=== PATIENT | female | born 1955 | race Caucasian/White ===

== ENCOUNTER 2022-01-03 08:09 | Outpatient (CLI) | payer OTHER, SELFPAY ==
[2022-01-03 13:42] LABS: Albumin* 4.7 g/dL (3.3-5.0)
[2022-01-03 13:43] LABS: Chloride* 101 mmol/L (96-114); Potassium* 4.1 mmol/L (3.6-5.1); Sodium* 138 mmol/L (135-149)
[2022-01-03 13:45] LABS: Aspartate Amino Transferase* 31 U/L (12-35); Bilirubin Total* 1.6 mg/dL (0.1-1.5); Blood Urea Nitrogen* 31 mg/dL (7-30); Carbon Dioxide* 27 mmol/L (20-32); Cholesterol* 198 mg/dL (90-199); Creatinine* 1.4 mg/dL (0.5-1.5); Estimated Glomerular Filt Rate 41 ml/min; Glucose* 95 mg/dL (60-115); Total Protein* 7.4 g/dL (6.0-8.3)
[2022-01-03 13:46] LABS: Alanine Aminotransferase* 21 U/L (4-35); Alkaline Phosphatase* 93 U/L (40-150); Calcium* 9.9 mg/dL (8.4-10.6); Triglycerides* 53 mg/dL (40-149)
[2022-01-03 14:03] LABS: HDL Cholesterol* 114 mg/dL (>=50); LDL Cholesterol Calculated 73 mg/dL (<100)
[2022-01-03 15:33] LABS: Free T4 Free Thyroxine* 1.48 ng/dL (0.70-1.85)
== END 2022-01-03 08:10 | disposition home or self-care (01) ==
LOC: LKVREF 08:09
PROVIDERS: PCP Family Medicine; Visit Provider Family Medicine
DX: E78.5 Hyperlipidemia, unspecified (principal); E03.9 Hypothyroidism, unspecified
CPT/HCPCS: 80053; 80061; 84439; 84443

== ENCOUNTER 2022-02-01 12:37 | Outpatient (CLI) | payer OTHER, SELFPAY ==
--- NOTE | 2022-02-01 13:00 | CRLHL7_ITS ---
For Patients: As a result of the Century Cures Act, medical imaging exams and procedure reports are released immediately into your electronic medical record. You may view this report before your referring provider. If you have questions, please contact your health care provider. DXA BONE MINERAL DENSITY STUDY Reason for exam: Osteoporosis. Current height (in): 63.5. Weight (lb): 184. Menopause age: 44. Ethnicity: White. 1. Have you had a previous hip or vertebral fracture? No. 2. Have you had any fractures during your adult life which did not result from significant trauma (e.g., auto accident)? No. 3. Did either of your parents have a hip fracture? No. 4. Do you smoke? No. 5. Have you ever taken Glucocorticoids? No. 6. Do you have rheumatoid arthritis? No. 7. Do you have secondary osteoporosis? No. 8. Do you drink 3 or more alcoholic drinks per day? No. 9. Are you being treated for osteoporosis? No. 10. Have you ever taken any of the following medications: Actonel, Evista, Fosamax, Miacalcin, Reclast, Boniva, Forteo, HRT (i.e., estrogen/hormone therapy), Protelos, Prolia, Vitamin D, Calcium, other ??? please specify. ANSWER: Yes, vitamin D. 11. Do you have any of the following medical conditions: Anorexia or bulimia, asthma or emphysema, end stage renal disease, hyperparathyroidism, any seizure disorders, cancer, inflammatory bowel diseases, hysterectomy, other ??? please specify. ANSWER: Yes, hysterectomy. 12. What was your maximum height (inches)? 68. 13. Do you perform weight bearing exercise regularly? Yes. 14. Do you regularly consume dairy products? Yes. 15. Do you drink caffeinated beverages? Yes. If female: 16. At what age did your period start? 11. 17. Are you premenopausal? No. 18. How many full-term pregnancies have you had? 0. 19. Have you ever missed your period for more than 6 months in a row (not including or menopause)? Not provided. TECHNIQUE: Bone mineral density study was performed using the [facility]. FINDINGS: The results of the study expressed as bone mineral density (BMD) are as follows: Lumbar spine L1, L4: BMD: 1.089 g/cm2. T-score: 0.5. Z-score: 2.5 Neck Left: BMD: 0.728 g/cm2. T-score: -1.1. Z-score: 0.6 Right: BMD: 0.840 g/cm2. T-score: -0.1. Z-score: 1.6 Total Left: BMD: 0.756 g/cm2. T-score: -1.5. Z-score: -0.1 Right: BMD: 0.785 g/cm2. T-score: -1.3. Z-score: 0.2 IMPRESSION: Osteopenia. *Comparison exams done prior to 08/2019 were performed on different unit, [facility]. COMPARISON: Compared with scan of 02/16/2019, the bone mineral density has decreased by 5.5 percent at the spine and increased by 2.1 percent at the hip. FRAX 10-year Fracture Risk Major Osteoporotic Fracture: 8.5% Hip Fracture: 0.8% Reported Risk Factors: [place] () Neck BMD=0.728, BMI= 32.1 Danny Valdes M.D. Diagnostic Radiologist [email or web address] JAMES/[email or web address] adams/Dictated by: Danny Valdes MD @ 02/02/2022 12:21:00 PM (Electronically Signed)
== END 2022-02-01 12:38 | disposition home or self-care (01) ==
LOC: RAD 12:38
PROVIDERS: PCP Family Medicine; Visit Provider Family Medicine
DX: M81.0 Age-related osteoporosis without current pathological fracture (principal); M85.89 Other specified disorders of bone density and structure, multiple sites; E28.319 Asymptomatic premature menopause
CPT/HCPCS: 77080

== ENCOUNTER 2022-03-08 09:29 | Outpatient (CLI) | payer OTHER, SELFPAY ==
[2022-03-08 12:20] LABS: Chloride* 106 mmol/L (96-114); Sodium* 141 mmol/L (135-149)
[2022-03-08 12:23] LABS: Blood Urea Nitrogen* 17 mg/dL (7-30); Carbon Dioxide* 26 mmol/L (20-32); Creatinine* 0.6 mg/dL (0.5-1.5); Estimated Glomerular Filt Rate 97 ml/min
[2022-03-08 12:24] LABS: Calcium* 9.3 mg/dL (8.4-10.6); Glucose* 98 mg/dL (60-115)
== END 2022-03-08 09:30 | disposition home or self-care (01) ==
PROVIDERS: PCP Family Medicine; Visit Provider Family Medicine
DX: E03.9 Hypothyroidism, unspecified (principal); N28.9 Disorder of kidney and ureter, unspecified; E78.5 Hyperlipidemia, unspecified; I10 Essential (primary) hypertension; F41.9 Anxiety disorder, unspecified
CPT/HCPCS: 80048; 84443

== ENCOUNTER 2022-03-19 09:42 | Day surgery (SDC) | payer OTHER, SELFPAY ==
[2022-03-19] VITALS (13 sets, daily range): BP systolic 117–165; BP diastolic 66–88; PULSE 62–78; RESP 14–24; TEMP 36.1–36.8; O2SAT 92–99; BMI 32.3
[2022-03-19] MEDS: LACTATED RINGERS 1000 ML 1,000 ML 100 ML IV (10:55)
[2022-03-19] MEDS: SODIUM CHLORIDE 0.9 % (FLUSH) 10 ML SYRINGE IVF (10:55)
--- NOTE | 2022-03-19 11:09 | SUR.PREOP ---
verified patients home covid test, results negative.
--- NOTE | 2022-03-19 12:00 | CRLHL7_ITS ---
For Patients: As a result of the Century Cures Act, medical imaging exams and procedure reports are released immediately into your electronic medical record. You may view this report before your referring provider. If you have questions, please contact your health care provider. Indication: Intraoperative fluoroscopy provided. Technique: Intraoperative fluoroscopy was provided by the Department. No radiologist was present for 1 consulted during the procedure. Two images were submitted. Total exposure time is 21 seconds. Total dose is [id number] Comparison: None Findings: The images show an operative procedure on the left foot in progress Impression: Intraoperative fluoroscopy provided Dictated by Tommy Ramirez MD @ 03/19/2022 5:58:17 PM (Electronically Signed)
[2022-03-19] MEDS: BUPIVACAINE 0.5% 30 ML INJECTION (14:00)
--- NOTE | 2022-03-19 14:27 | W.ANESCHARGE ---
Anesthesia Charges Start Date/Time Anesthesia Start Date: 03/19/22 Anesthesia Start Time: 13:52 Stop Date/Time Anesthesia Stop Date: 03/19/22 Anesthesia Stop Time: 17:09 Summary Emergency: No
--- NOTE | 2022-03-19 16:18 | SUR.PREOP ---
was called & updated regarding patient recovering on the Med/Surg floor. is picking up scripts prior to coming to pick patient up this evening. Med/Surg charge nurse, Leidy, was given all DC instructions for patient.
--- NOTE | 2022-03-19 17:03 | W.ANESCHARGE ---
Anesthesia Charges Start Date/Time Anesthesia Start Date: 03/19/22 Anesthesia Start Time: 13:52 Stop Date/Time Anesthesia Stop Date: 03/19/22 Anesthesia Stop Time: 17:09 Summary Emergency: No
--- NOTE | 2022-03-19 17:13 | P.GSOP_ITS ---
Operative Note Date of procedure: 03/19/22 Pre-op diagnosis: 1. Great toe deformity overlapping 2nd left 2. Hammertoe deformity 2nd digit left 3. Hammertoe deformity 3rd digit left 4. Hammertoe deformity 4th digit left 5. Hammertoe deformity 5th digit left 6. Bone spur left foot Post-op diagnosis: 1. Great toe deformity overlapping 2nd left 2. Hammertoe deformity 2nd digit left 3. Hammertoe deformity 3rd digit left 4. Hammertoe deformity 4th digit left 5. Hammertoe deformity 5th digit left 6. Bone spur left foot Type of Procedure: 1. First metatarsophalangeal joint fusion left 2. 2nd Hammertoe repair by PIPJ fusion with proximal phalangeal base resection left 3. Third hammertoe repair by PIPJ fusion with proximal phalangeal base resection left 4. Fourth hammertoe repair by PIPJ fusion with extensor and MPJ capsule release left 5. Fifth digit repair by extensor and MPJ capsule release left 6. Exostectomy left foot Indications: Patient is in clinic for ongoing left foot pain. After long discussion our last visit primary pain is the forefoot. She has extensive arthritic changes throughout the midfoot and we are going to take a small area of spurring off the 1st metatarsal cuneiform joint. We discussed her forefoot reconstruction and possible surgical procedures that will be necessary. I reviewed the procedure, recovery, expectations and potential complications. These include but are not limited to: Poor wound healing, wound infection, nerve injury, hardware failure or irritation, under correction, over correction, nonunion, malunion, delayed union, flail toe, floating toe, potential need for future surgery, deep venous thrombosis, pulmonary embolism and possible . All questions answered written consent was obtained. Procedure Description: Preoperative diagnosis: 1. Great toe deformity overlapping 2nd left 2. Hammertoe deformity 2nd digit left 3. Hammertoe deformity 3rd digit left 4. Hammertoe deformity 4th digit left 5. Hammertoe deformity 5th digit left 6. Bone spur left foot Postoperative diagnosis: 1. Great toe deformity overlapping 2nd left 2. Hammertoe deformity 2nd digit left 3. Hammertoe deformity 3rd digit left 4. Hammertoe deformity 4th digit left 5. Hammertoe deformity 5th digit left 6. Bone spur left foot Procedure: 1. First metatarsophalangeal joint fusion left 2. 2nd Hammertoe repair by PIPJ fusion with proximal phalangeal base resection left 3. Third hammertoe repair by PIPJ fusion with proximal phalangeal base resection left 4. Fourth hammertoe repair by PIPJ fusion with extensor and MPJ capsule release left 5. Fifth digit repair by extensor and MPJ capsule release left 6. Exostectomy left foot After discussing the risks and benefits of the procedure, the patient signed informed consent.? The operative site was marked and the patient was brought to the operating room and placed on the operating table in supine position.? Care was taken to pad the patient's pressure points.?? The patient was then given sedation by anesthesia.??30 mL of 0.5% Marcaine plain were injected into the left foot. The operative site was then prepped and draped in the usual sterile fashion.? A time-out was then performed. Left foot was not exsanguinated and the ankle tourniquet was inflated to 250 mm Hg. Linear incision made over the 1st metatarsophalangeal joint. Incision was carried down through skin subcutaneous tissues. Linear capsule incision was made the capsular tissues and periosteum reflected away from the 1st metatarsal head and proximal phalangeal base. The extensor hallucis longus tendon and brevis tendon were both strong and contracted. It would allow any plantar flexion of the great toe. A Z-lengthening was then performed of the EHL tendon. The extensor brevis tendon was transected at the level of the joint. These will be later repaired. A pin was placed in the 1st metatarsal head and an 18 mm Reamer was used to remove cartilage and subchondral bone. Guide pin was removed and placed in the proximal phalangeal base the corresponding 18 mm Re amer was used to remove cartilage and subchondral bone. Wound was thoroughly irrigated normal sterile saline. No fenestration was necessary due to soft bone. Simulated weight-bearing with a metal lid allowed placement of the great toe the perfect position. She had a negative intermetatarsal angle and so the toe was placed slightly angled medial. Once in place temporary K-wire was directed across the fusion site. C-arm confirmed excellent placement guide pin was then placed from distal medial to proximal lateral and a 3.0 partially- threaded headless screw was inserted. The dorsal 1st MPJ fusion plate was then applied and 3.0 mm locking screws x3 were placed distally and x2 proximally. A 3.0 mm nonlocking screw was also placed proximal. Wounds thoroughly irrigated normal sterile saline. Extensor tendon was then repaired with 4-0 FiberWire suturing the proximal slips of the longus and brevis to the distal slip of the longus. Joint capsule was then closed with 3-0 Vicryl. Subcutaneous tissues reapproximated with 4-0 Monocryl. Skin repaired with 4-0 Prolene. Slightly more proximal a linear incision made over the 1st metatarsocuneiform joint. There was a large bony spur in this area dorsally. Incision was carried down through skin subcutaneous tissues. Periosteal elevator was used to lift the periosteum off the spurred area. One loose piece of bone was removed. The remainder of the bony spur was removed with a rongeur. Direct palpation confirmed adequate resection. Thoroughly irrigated normal sterile saline. Subcutaneous tissues reapproximated with 4-0 Monocryl and skin closed with 4-0 Prolene. Linear incisions made over the 2nd toe PIPJ. Incision was taken down through skin subcutaneous tissues. Transverse incision was made through extensor tendon and joint capsule and the medial and lateral collateral ligaments were released. An oscillating saw was used to resect the head of the proximal phalanx and base of the middle phalanx. Was medially evident that the proximal phalanx would not reduce. It is a linear incisions made the 2nd intermetatarsal space and the extensor brevis and longus tendons transected as well as the joint capsule dorsally and medially. The toe still did not reduce. Direct plantar palpation and C-arm confirmed prominent and abnormally shaped proximal phalangeal base. Direct palpation of this area medial to the push the proximal phalanx into an extended position. Unfortunately no other option would keep the toe in a rectus position other than resection of the proximal phalangeal base. Base was exposed and a sagittal saw was used to resect base in total it was removed with a rongeur. A 0.054 smooth K-wire was introduced into the base of the middle phalanx driven out the tip of the toe. The PIPJ fusion was held reduced and the K-wire driven into the proximal phalanx. Small amount of the pin was then driven out through the proximal aspect of the phalanx the extensor tendon and capsule were then brought over the pin so that they would lie within metatarsophalangeal joint. K-wires and aligned on the 2nd metatarsal head and with C-arm guidance toes position optimally the K-wire advanced into the meta tarsal. The K-wire was bent cut and capped with a Jergens ball. The wound was thoroughly irrigated with normal sterile saline. Extensor tendon at the PIPJ was repaired with 4-0 Vicryl. Subcutaneous tissues reapproximated 4-0 Monocryl. And the incision closed with 4-0 Prolene. ? Linear incisions made over the 3rd toe PIPJ. Incision was taken down through skin subcutaneous tissues. Transverse incision was made through extensor tendon and joint capsule and the medial and lateral collateral ligaments were released. An oscillating saw was used to resect the head of the proximal phalanx and base of the middle phalanx. It Was medially evident that the proximal phalanx would not reduce. Through the linear incision made in the 2nd intermetatarsal space and the extensor brevis and longus tendons to the 3rd toe were transected as well as the 3rd MPJ joint capsule dorsally and medially. The toe still did not reduce. Direct plantar palpation and C-arm confirmed prominent and abnormally shaped proximal phalangeal base. Direct palpation of this area medial to the push the proximal phalanx into an extended position. Unfortunately no other option would keep the toe in a rectus position other than resection of the proximal phalangeal base. Base was exposed and a sagittal saw was used to resect base in total it was removed with a rongeur. A 0.054 smooth K-wire was introduced into the base of the middle phalanx driven out the tip of the toe. The PIPJ fusion was held reduced and the K-wire driven into the proximal phalanx. Small amount of the pin was then driven out through the proximal aspect of the phalanx the extensor tendon and capsule were then brought over the pin so that they would lie within metatarsophalangeal joint. K-wires and aligned on the 3rd metatarsal head and with C-arm guidance toe position optimally the K-wire advanced into the metatarsal. The K-wire was bent cut and capped with a Jergens ball. The wound was thoroughly irrigated with normal sterile saline. Extensor tendon at the PIPJ was repaired with 4-0 Vicryl. Subcutaneous tissues reapproximated 4-0 Monocryl. And the incision closed with 4-0 Prolene. The incision over the 2nd intermetatarsal space was closed with 4- 0 Monocryl and 4-0 Prolene. Linear incision made over the 4th toe PIPJ. Incision carried down through skin subcutaneous tissues. Transverse incision made through the extensor tendon and joint capsule. The mediolateral collateral ligaments released. An oscillating saw was used to resect the head of the proximal phalanx and base the middle phalanx. Proximal blunt dissection exposed the extensor tendon and joint capsule and transverse incisions were made through the tendon and capsule. The 4th toe unlike the other 2 toes did drop into a rectus position with the soft tissue release. 0.054 smooth K-wire was introduced into the base of the middle phalanx driven out the tip of the toe. Fusion site was aligned and the K-wire driven retrogradely into the proximal phalanx. K-wire was bent cut and capped. Multiple C-arm images confirmed excellent position. Wound was irrigated with normal sterile saline. Extensor tendon at the PIPJ fusion site was repaired with 4-0 Vicryl. Subcutaneous tissues reapproximated 4-0 Monocryl the skin closed 4-0 Prolene. 1 cm incision was made over the dorsal 5th metatarsal phalangeal joint. Blunt dissection carried down to the extensor tendon joint capsule. These were transected medial to lateral. With release of the extensor tendon and joint capsule 5th toe dropped into a rectus position. It did not need any further intervention. Wound was irrigated normal sterile saline. Incision closed with 4-0 Prolene. Tourniquet was released and normal cap refill time returned to all digits of the left foot. Sterile dressings were then applied. She was placed in a well-padded cam boot. ? The patient was then woken and transported to the recovery area in stable condition. The patient tolerated the procedure well. She is given both written and verbal postop instructions. She is weight-bearing to the heel in a Cam boot with crutch or walker assistance. She is given oxycodone for pain. We also discussed Tylenol use. She will start aspirin therapy starting tomorrow 81 mg x 2 once daily. ? Findings: Complications: None apparent Implants: Arthrex max Force 1st MPJ fusion plate x1, 3.0 mm cortical locking screws times 5 and nonlocking x1, 3.0 mm cannulated headless screw x1 Anesthesia: MAC, local and other (Converted to LMA) Surgeon: Fredis Partida DPM Estimated blood loss (mL): 15 Condition: stable Disposition: PACU
--- NOTE | 2022-03-19 22:27 | PC.NURSE ---
Discharge Summary: Patient to 260 approx 1735. Dressing to left foot C/D/I, boot on. Denies pain. Tolerating toast and juice with no nausea. Up to bathroom with 1 assist and walker. Voided 1. Discharged at 1925 with all personal belongings accompanied by . Discharge instructions discussed with patient and voiced understanding.
== END 2022-03-19 19:25 | disposition home or self-care (01) ==
PROVIDERS: PCP Family Medicine; Visit Provider Podiatrist
PROC: (CPT 28285; principal; 2022-03-19 12:00)
DX: M20.5X2 Other deformities of toe(s) (acquired), left foot (principal); M20.42 Other hammer toe(s) (acquired), left foot; M19.072 Primary osteoarthritis, left ankle and foot; M89.8X7 Other specified disorders of bone, ankle and foot
CPT/HCPCS: 28750; 28285 ×4; 28104; 01480; 73620; C1713; J2250; J2704; J3010; J3490; J7120

== ENCOUNTER 2022-12-17 08:00 | Outpatient (CLI) | payer OTHER, SELFPAY | END 2022-12-17 08:01 | disposition home or self-care (01) | LOC: NFLDREF 12-20 06:47 | PROVIDERS: PCP Family Medicine; Referring Provider Family Medicine; Visit Provider Family Medicine | DX: E78.5 Hyperlipidemia, unspecified (principal); E66.9 Obesity, unspecified; E03.9 Hypothyroidism, unspecified; I10 Essential (primary) hypertension; M85.80 Other specified disorders of bone density and structure, unspecified site | CPT/HCPCS: 80053; 80061; 84439; 84443 ==

== ENCOUNTER 2022-12-20 13:12 | Outpatient (CLI) | payer OTHER, SELFPAY ==
--- NOTE | 2022-12-20 13:40 | CRLHL7_ITS ---
For Patients: As a result of the Century Cures Act, medical imaging exams and procedure reports are released immediately into your electronic medical record. You may view this report before your referring provider. If you have questions, please contact your health care provider. BILATERAL SCREENING MAMMOGRAM WITH COMPUTER-AIDED DETECTION AND TOMOSYNTHESIS TECHNIQUE: CC and MLO views were obtained. These mammographic images have been obtained using full-field digital technique. These mammographic images were interpreted with the benefit of computer-aided detection. Breast tomosynthesis was used in this interpretation. COMPARISON FILM: 02/16/19, 11/29/17, 05/24/16. FINDINGS: There are scattered areas of fibroglandular density. IMPRESSION: There is no radiographic evidence for malignancy. ASSESSMENT: BI-RADS Category 2: Benign RECOMMENDATION: Routine screening mammogram in 1 year. A lay language report of this examination will be provided to the patient. HANS BERRY M.D. Diagnostic/Nuclear Medicine Radiologist [email or web address] Transcribed: 1:[address]/Dictated by: Hans Berry MD @ 12/21/2022 10:05:00 AM (Electronically Signed)
== END 2022-12-20 13:13 | disposition home or self-care (01) ==
LOC: MAMMO 13:13
PROVIDERS: PCP Family Medicine; Visit Provider Family Medicine
DX: Z12.31 Encounter for screening mammogram for malignant neoplasm of breast (principal)
CPT/HCPCS: 77063; 77067

== ENCOUNTER 2023-01-02 11:43 | Day surgery (SDC) | payer OTHER, MEDICARE, SELFPAY ==
[2023-01-02] VITALS (19 sets, daily range): BP systolic 103–159; BP diastolic 58–91; PULSE 56–70; RESP 12–16; TEMP 35.7–37.1; O2SAT 91–100; BMI 33.9
[2023-01-02] MEDS: SODIUM CHLORIDE 0.9 % (FLUSH) 10 ML SYRINGE IVF (12:20)
[2023-01-02] MEDS: OXYCODONE (CR) 10 MG TAB.ER.12H PO (12:20)
[2023-01-02] MEDS: LACTATED RINGERS 1000 ML 1,000 ML 100 ML IV ×2 (12:20→13:26)
[2023-01-02] MEDS: fentaNYL 100 MCG/2 ML inj IVP (12:23)
[2023-01-02] MEDS: MIDAZOLAM HCL 1 MG/ML inj IVP (12:23)
--- NOTE | 2023-01-02 12:34 | SUR.PREOP ---
TIME?OUT:?1222 PT/RN/MDA?VERIFICATION?OF?SURGICAL?SITE Right Knee,?PROCEDURE Adductor Canal Block,?AND?CONSENT OBTAINED?PRIOR?TO?INVASIVE?PROCEDURE.
--- NOTE | 2023-01-02 12:37 | CRLHL7_ITS ---
For Patients: As a result of the Cures Act, medical imaging exams and procedure reports are released immediately into your electronic medical record. You may view this report before your referring provider. If you have questions, please contact your health care provider. Indication: Postop Technique: Two views right knee Findings/Impression: Hardware from a right total knee arthroplasty is in satisfactory position. Bone alignment is normal. No sign of acute fracture. Postop changes are within normal limits. Soft tissue varicosities. Dictated by Danny Valdes MD @ 01/03/2023 9:29:50 AM (Electronically Signed)
[2023-01-02] MEDS: CEFAZOLIN 2 GM in 0.9 % SODIUM CHLORIDE Mini-bag 100 ML IVPB ×2 (12:59→18:39)
[2023-01-02] MEDS: TRANEXAMIC ACID 100 MG/ML INJ 1000 MG IV (12:59)
--- NOTE | 2023-01-02 13:23 | P.NB_ITS ---
Nerve Block Nerve Block Time Seen by Provider: 12:25 Date Seen: 01/02/23 Type of block requested by surgeon for post-operative analgesia: geniculars Side: right Time out performed: Yes Verification of patient name: Yes Verification of date of : Yes Site marking: site marked Name of person performing procedure: Tobias Continuous monitoring Was continuous monitoring of O2 sat, B/P, monitor and storage bin tender, recorded every 15 minutes?: Yes Procedure Checklist: sterile prep, needles and gloves Medications given in 5ml increments after negative aspiration: Ropivicaine %: 0.5 mL: 9 Needle gauge: 25 Patient tolerated procedure well: Yes Block Charges Block Charge (with Pro Fee): Genicular Nerve Block Use of Ultrasound Machine for Block: No
--- NOTE | 2023-01-02 13:23 | P.NB_ITS ---
Nerve Block Nerve Block Time Seen by Provider: 12:25 Date Seen: 01/02/23 Type of block requested by surgeon for post-operative analgesia: adductor canal Side: right Time out performed: Yes Verification of patient name: Yes Verification of date of : Yes Site marking: site marked Name of person performing procedure: Tobias Continuous monitoring Was continuous monitoring of O2 sat, B/P, playground monitor, recorded every 15 minutes?: Yes Procedure Checklist: sterile prep, needles and gloves Ultrasound guided. Images saved: Yes Medications given in 5ml increments after negative aspiration: Ropivicaine %: 0.5 mL: 20 Needle gauge: 20 Decadron (mg): 10 Precedex (mcg): 25 Patient tolerated procedure well: Yes Additional comments: Needle noted adjacent to nerve Block Charges Block Charge (with Pro Fee): Femoral Nerve Use of Ultrasound Machine for Block: Yes- US Guidance/pain block
--- NOTE | 2023-01-02 13:23 | W.ANESCHARGE ---
Anesthesia Charges Start Date/Time Anesthesia Start Date: 01/02/23 Anesthesia Start Time: 12:37 Stop Date/Time Anesthesia Stop Date: 01/02/23 Anesthesia Stop Time: 14:45
--- NOTE | 2023-01-02 14:35 | W.ANESCHARGE ---
Anesthesia Charges Start Date/Time Anesthesia Start Date: 01/02/23 Anesthesia Start Time: 12:37 Stop Date/Time Anesthesia Stop Date: 01/02/23 Anesthesia Stop Time: 14:45
--- NOTE | 2023-01-02 14:44 | PM.ORPRC ---
Procedure Note Date of procedure: 01/02/23 Procedure: PREOPERATIVE DIAGNOSIS: 1. Right knee osteoarthritis, primary, severe POSTOPERATIVE DIAGNOSIS: 1. Right knee osteoarthritis, primary, severe PROCEDURE: 1. Right total knee arthroplasty SURGEON: Martin Shirley MD. BOOKING MANAGER: Ankur POWELL - Of note, a skilled human services assistant was critical for this case to aid in patient positioning, tissue retraction, limb manipulation/positioning, and closure. ANESTHESIA: Spinal anesthetic IMPLANTS: DePuy J&J all cemented TKA - Attune PS femur size 6 regular, size 5 tibia, 5 poly spacer, 35 mm patella TOURNIQUET: 90 min at 300 torr EBL: 50 ml COMPLICATIONS: None evident INDICATIONS: The patient is a pleasant 67-year-old female who has experienced severe right knee pain and difficulty bearing weight. Workup included x-rays which revealed severe osteoarthrosis in the knee. Given the deformity, the dysfunction, and the pain, as well as the failure of nonoperative management, recommendation was made for surgery. FINDINGS: Full-thickness chondral loss diffusely throughout the lateral and patellofemoral compartments. To lesser degree medial compartment. Degenerative meniscus pathology both compartments. Large tricompartmental osteophytes. Severely osteopenic bone that washed away with irrigation. Severely narrowed/thin patella. DESCRIPTION OF PROCEDURE: Following a thorough discussion of risks, benefits, and alternatives consent was obtained and the right knee was marked. The patient was brought to the operating room and placed supine on the operating table. Induction of anesthesia was undertaken. 2 g IV Ancef and 1 g tranexamic acid was administered within 1 hr of incision preoperatively. Proper time-out was performed identifying proper patient, site, procedure. The operative extremity was prepped and draped in the appropriate sterile fashion using ChloraPrep after the patient was positioned supine with all bony prominences well padded. A longitudinal, anterior, midline skin incision was made starting approximately 3cm proximal to the superior pole of the patella and advanced distal to the tibial tubercle. A median parapatellar arthrotomy was created. A medial subperiosteal sleeve was created with knife, charles elevator and curved osteotome. The retropatellar fatpad was resected and the synovium in the suprapatellar pouch excised to visualize the anterior femoral cortex. Femoral preparation was performed via an intramedullary guide. Step drill allowed access into the femoral canal. The distal cutting guide was placed with 5? of valgus and 10 mm cut on the distal femur. Femur was sized using a posterior referencing guide as well as assessing trans epicondylar axis and Whitesides line in 3? of external rotation relative to the posterior condylar axis. This found have a best fit with the sizing noted above. The 4 in 1 cutting block was then placed, and the distal femur shaped accordingly. The box cut was then created and the trial implant inserted to confirm appropriate fit. We turned our attention to the proximal tibia. Extramedullary guide was utilized for cutting with the goal of being 90 degree cut from the mechanical axis of the tibia in the varus/valgus plane utilizing tibial crest as the primary alignment. Initially a 2 mm resection was performed from the medial tibial plateau. Ultimately, balancing was achieved in both flexion and extension in both varus and valgus. The knee was able to achieve full extension as well comfortably. The patella was initially measured and found have a thickness of 17.5 mm. It was resected back to approximately 12.5 mm. It was sized to be a best fit with as noted above. This was drilled, trial placed. All trials were placed and found to have an excellent stability and balance. At this stage, trial implants were removed, the knee was thoroughly irrigated with normal saline, and the cement was mixed. After irrigation, the knee was thoroughly dried, and cement placed, with the real tibial and femoral implants placed along with the patella. Trial poly spacer was placed and confirmed to have excellent range of motion and full extension, and the real poly spacer opened and inserted. All extra cement was removed, and a 3 min Betadine soak performed. Finally, a final irrigation round with normal saline was performed. Closure performed with 0 Vicryl and #0 Stratafix for the quad tendon/retinaculum. 2-0 Vicryl for the subcutaneous and 4-0 Stratafix for subcuticular closure. Dressings were applied and the patient was awoken from anesthesia after the tourniquet deflated and transferred the PACU in stable condition. A skilled human services assistant was critical for this case to aid in patient positioning, tissue retraction, bone exposure, limb manipulation/positioning, patient safety, and closure. PLAN: 1. Weight bear as tolerated operative extremity. 2. 23 hr perioperative antibiotics. 3. Ice. 4. PT/OT consults for ambulation assistance/mobility education. 5. Social work consult for discharge planning. 6. DVT prophylaxis with at SCDs, Tam Hose, and aspirin twice daily.
--- NOTE | 2023-01-02 15:12 | SUR.PHASEI ---
patient meets patient d/c criteria
--- NOTE | 2023-01-02 15:13 | SUR.PHASEI ---
patient has 100cc lr remaining upon d/c from pacu phase 1. into pacu with 120cc lr
[2023-01-02] MEDS: LACTATED RINGERS 1000 ML 1,000 ML 75 ML IV (15:35)
[2023-01-02] MEDS: HYDROmorphone 0.5 mg/0.5 ml inj IVP ×4 (15:52→21:38)
[2023-01-02] MEDS: ACETAMINOPHEN 500 MG TABLET 1000 MG PO (18:02)
--- NOTE | 2023-01-02 18:38 | P.IMCN_ITS ---
Date of Consult Patient: [facility] Patient Consult date: 01/02/23 Requesting Physician: Orthopedics Primary Care Provider: Cosmo Miller MD Consult Narrative Reason for consult: Medical management of comorbidities Narrative: Cheryl Heath is a 67 year old female who presented to the hospital today for an elective R TKA. There were no surgical or anesthetic complications noted during procedure. Patient's H&P reviewed, PCP is Dr. Miller. Past medical history significant for: Essential HTN, hyperlipidemia, osteoarthritis, hypothyroidism. Postoperative plan: Home with , sister is also visiting this week to help at home. 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 She is a nonsmoker, social ETOH 2-3 nights/week. Review of Systems Status of ROS: Reports: 10 or more systems reviewed and unremarkable except as noted in History and below [facility] Medical History HTN (hypertension) ?I10 - Essential (primary) hypertension (ICD-10) Osteoarthritis of right shoulder ?M19.011 - Primary osteoarthritis, right shoulder (ICD-10) Osteoarthritis of left shoulder ?M19.012 - Primary osteoarthritis, left shoulder (ICD-10) Hypothyroidism ?E03.9 - Hypothyroidism, unspecified (ICD-10) Hyperlipidemia ?E78.5 - Hyperlipidemia, unspecified (ICD-10) Osteopenia ?M85.80 - Other specified disorders of bone density and structure, unspecif ied site (ICD-10) Osteoarthritis of right knee ?M17.11 - Unilateral primary osteoarthritis, right knee (ICD-10) Tendonitis of left rotator cuff ?M75.82 - Other shoulder lesions, left shoulder (ICD-10) Adhesive capsulitis of left shoulder ?M75.02 - Adhesive capsulitis of left shoulder (ICD-10) Seasonal allergies ?J30.2 - Other seasonal allergic rhinitis (ICD-10) Anxiety ?F41.9 - Anxiety disorder, unspecified (ICD-10) Swelling of toe of left foot ?M79.89 - Other specified soft tissue disorders (ICD-10) Surgical History (Updated 01/02/23 @ 18:44 by Dalila Rosado MD) History of total right knee replacement (TKR) ?Z96.651 - Presence of right artificial knee joint (ICD-10) Hammertoe of left foot (03/19/22) ?M20.42 - Other hammer toe(s) (acquired), left foot (ICD-10) H/O total hysterectomy with bilateral salpingo-oophorectomy (BSO) ?Z90.710 - Acquired absence of both cervix and uterus (ICD-10) ?Z90.722 - Acquired absence of ovaries, bilateral (ICD-10) ?Z90.79 - Acquired absence of other genital organ(s) (ICD-10) History of cholecystectomy ?Z90.49 - Acquired absence of other specified parts of digestive tract (ICD- 10) History of appendectomy ?Z90.49 - Acquired absence of other specified parts of digestive tract (ICD- 10) S/p bilateral carpal tunnel release ?Z98.890 - Other specified postprocedural states (ICD-10) Social History (Updated 12/20/22 @ 07:50 by Ann Hoffmann ~ [facility]) What is your current living situation?: I presently have a place to live Problems where you live: no known problems In the past 12 months, utilities in danger of being shut off: no In past 12 months, lack of transportation kept you from medical appts, meetings, work, or getting things needed for daily living: no In the past 12 mos, have been you worried that your food would run out before you had money to buy more?: never true In the past 12 mos, the food you bought just didn't last and you didn't have m oney to buy more?: never true Smoking Status: Never smoker How often do you have a drink containing alcohol: monthly or less How many standard drinks containing alcohol do you have on a typical day: 3 or 4 AUDIT-C Alcohol total score: 2 Non-prescribed substance use: denies use Caffeine: Yes How often does anyone, including family, friends and others, physically hurt you : never How often does anyone, including family, friends and others, insult or talk down to you: never How often does anyone, including family, friends and others, threaten you with harm: never How often does anyone, including family, friends and others, scream or curse at you: never Little interest or pleasure in doing things: nearly every day Feeling down, depressed, or hopeless: not at all Meds Home Medications and Allergies Home Medications Medication Instructions Recorded Confirmed Type cholecalciferol (vitamin D3) 10 10 mcg PO QDAY 07/31/22 01/02/23 History mcg (400 unit) capsule naproxen sodium 220 mg tablet 220 mg PO BID PRN 10/04/22 01/02/23 History (Aleve) Allergies Allergy/AdvReac Type Severity Reaction Status Date / Time ragweed pollen Allergy Intermediate itchy eyes Verified 01/02/23 11:57 Exam Narrative: Exam Narrative: GEN: Alert and oriented, nontoxic, answering questions appropriately HEENT: EOMIs bilaterally, no scleral icterus CV: Sinus arrhythmia, no concerning murmurs R: LCTA bilaterally without concerning wheezing, air movement adequate Ext: Bilateral Tam hose Skin: No concerning skin lesions or rashes on exposed skin Neuro: Nonfocal Psych: Appropriate Const: Vital Signs, click to edit/add: Vital Signs - 24 hr 01/02/23 12:22 01/02/23 12:24 01/02/23 12:27 Temperature 98.8 F 98.8 F Pulse Rate 66 66 67 Pulse Rate [Pulse Oximeter] Respiratory Rate 16 16 16 Blood Pressure 146/79 H 159/80 H 132/76 Blood Pressure [Ri ght Arm] Pulse Oximetry 97 100 100 Oxygen Delivery Me thod Room Air Nasal Cannula Nasal Cannula Oxygen Flow Rate 2 2 01/02/23 14:40 01/02/23 14:45 01/02/23 14:50 Temperature 97.4 F L Pulse Rate 57 L 59 L 57 L Pulse Rate [Pulse Oximeter] Respiratory Rate 16 14 14 Blood Pressure 105/58 L 111/67 118/72 Blood Pressure [Ri ght Arm] Pulse Oximetry 96 96 95 Oxygen Delivery Me thod Room Air Oxygen Flow Rate 01/02/23 14:55 01/02/23 15:00 01/02/23 15:05 Temperature Pulse Rate 56 L 58 L 57 L Pulse Rate [Pulse Oximeter] Respiratory Rate 12 14 16 Blood Pressure 117/71 124/88 137/79 Blood Pressure [Ri ght Arm] Pulse Oximetry 94 96 95 Oxygen Delivery Me thod Oxygen Flow Rate 01/02/23 15:10 01/02/23 15:15 01/02/23 15:30 Temperature 97.0 F L 96.6 F L 96.9 F L Pulse Rate 60 Pulse Rate [Pulse Oximeter] 63 62 Respiratory Rate 14 14 16 Blood Pressure 133/74 Blood Pressure [Ri ght Arm] 146/77 H 141/83 H Pulse Oximetry 94 98 95 Oxygen Delivery Me thod Room Air Room Air Oxygen Flow Rate 01/02/23 15:45 01/02/23 16:00 01/02/23 16:15 Temperature 96.4 F L 96.3 F L 96.4 F L Pulse Rate Pulse Rate [Pulse Oximeter] 60 65 61 Respiratory Rate 12 12 Blood Pressure Blood Pressure [Ri ght Arm] 127/90 H 103/63 107/71 Pulse Oximetry 94 93 93 Oxygen Delivery Me thod Room Air Room Air Room Air Oxygen Flow Rate 01/02/23 16:45 01/02/23 17:15 Temperature 96.2 F L 96.6 F L Pulse Rate Pulse Rate [Pulse Oximeter] 66 65 Respiratory Rate 16 16 Blood Pressure Blood Pressure [Ri ght Arm] 106/66 117/91 H Pulse Oximetry 91 98 Oxygen Delivery Me thod Room Air Room Air Oxygen Flow Rate Assessment and Plan Assessment and plan (1) History of total right knee replacement (TKR): Problem comment: - 01/02/23aCsper Status: Acute Plan - pain management and prophylaxis per orthopedic surgery team - continue home medications for comorbidities - anticipate routine postoperative course
--- NOTE | 2023-01-02 19:10 | PC.NURSE ---
Shift note: Patient has been intermittently sleeping since arrival to med/surg unit this afternoon at 1515. She has not voided yet though senior medical writer discussed staff assisting patient up to bedside commode shortly being PRN Dilaudid was given at 1845. LS clear and BS active x 4. Patient alert & oriented x 4 when awake and interacting with staff. She is refusing supper despite several staff members offering supper and alternatives to eat. Patient has drank 200 mL of ice water. Cryo cuff and bilateral TEDs in place along with SCDs. VSS and patient has been afebrile since arrival to unit. Dressing to R knee noted to be clean, dry and intact. Patient able to wiggle toes after arrival to unit though did sleep after arrival to unit as she reports poor sleep last night. Bed alarm on and call light within reach. Paper Hanger educated patient about importance of getting up with staff as she is fall risk. Pt reports hx of surgery to L foot and needs customized boot when she gets up to ambulate. LR running at 75 mL/hr per order. Patient's sister has been present at bedside since arrival to unit. CMS to RLE intact.
[2023-01-02] MEDS: ONDANSETRON 2 MG/ML inj 4 MG IVP (19:52)
[2023-01-02] MEDS: PROCHLORPERAZINE 5 MG/ML VIAL IV (20:49)
[2023-01-02] MEDS: ASPIRIN 81 MG TABLET EC PO (20:49)
[2023-01-02] MEDS: SENNOSIDES 1 TAB TABLET 2 TAB PO (20:49)
[2023-01-03] MEDS: CEFAZOLIN 2 GM in 0.9 % SODIUM CHLORIDE Mini-bag 100 ML IVPB ×2 (02:41→11:19)
[2023-01-03 03:00] VITALS: BP 135/77; PULSE 67; RESP 18; TEMP 36.2; O2SAT 98
[2023-01-03 06:29] LABS: Basophils Absolute Auto 0.01 K/uL (0.00-0.30); Basophils Percent Auto 0.1 % (0.0-3.0); Hematocrit 38.9 % (33.0-51.0); Hemoglobin* 12.4 gm/dL (12.0-16.0); Immature Granulocytes Abs Auto 0.09 K/uL (0.00-0.30); Immature Granulocytes Pct Auto 1.1 %; Lymphocytes Percent Auto 5.9 % (20-44); Mean Corpuscular HGB Conc 32 gm/dL (32-36); Mean Corpuscular Hemoglobin 28 pg (26-34); Mean Corpuscular Volume 88 fL (80-100); Monocytes Percent Auto 6.6 % (0.0-11.0); Neutrophils Percent Auto 86.3 % (42.0-72.0); Platelet Count* 205 K/uL (140-440); RDW Coefficient of Variation % 13.3 % (11.5-15.5); Red Blood Count 4.42 m/uL (4.00-5.20); White Blood Count* 8.28 K/uL (4.50-11.00)
[2023-01-03 06:32] LABS: Slide Review Reflex No
[2023-01-03] MEDS: OXYCODONE 5 MG TABLET PO ×2 (06:33→09:03)
--- NOTE | 2023-01-03 06:52 | PC.NURSE ---
End of shift [id number]: Alert and oriented x 4. Up with SBA with walker and gait belt. Pain to right knee rated at 5/10, managed with IV dilaudid until 2199 due to patient having poor PO intake. Patient reports nausea and did have emesis x 1. At 1949 patient reported nausea, zofran given with no effective results, Dr. Rosado notified and new order for compazine. At 2029 assisted patient to bathroom, once back to the bed Cheryl had a moderate emesis of 200ml's of clear liquid, appeared to be water. Per her and her sisters report she has had a few saltine crackers, at home she also has very little oral intake. Compazine administered with effective results. Call Or Contact Centre Team Leader discussed nutritional supplement with patient if she didn't want to eat, declined at this time. Dressing to knee clean, dry and intact. CMS intact. Cryocuff tolerated well.
[2023-01-03 07:00] VITALS: BP 142/88; PULSE 67; RESP 16; TEMP 36.4; O2SAT 98
[2023-01-03 07:03] LABS: Potassium* 4.1 mmol/L (3.6-5.1); Sodium* 139 mmol/L (135-149)
[2023-01-03 07:06] LABS: Blood Urea Nitrogen* 21 mg/dL (7-30); Creatinine* 0.6 mg/dL (0.5-1.5); Est. Creatinine Clearance* 43.92; Estimated Glomerular Filt Rate 97 ml/min
[2023-01-03] MEDS: AMLODIPINE 10 MG TABLET PO (08:15)
[2023-01-03] MEDS: SIMVASTATIN 20 MG TABLET PO (08:16)
[2023-01-03] MEDS: ASPIRIN 81 MG TABLET EC PO (08:16)
[2023-01-03] MEDS: SENNOSIDES 1 TAB TABLET 2 TAB PO (08:16)
--- NOTE | 2023-01-03 10:05 | PC.SOCIAL ---
Discharge Planning: Met with patient, Cehryl and her sister, Martha in the room. Sister, Martha will be driving patient home. She will also be able to stay with her for one week and care for her as she recuperates. Social work to follow up as needed.
--- NOTE | 2023-01-03 10:22 | PC.NURSE ---
Patient refused AM dose of Synthroid when scheduled at 0900 today stating, I'm supposed to take that 4 hours after any medication. Will reapproach after noon if patient has not discharged.
[2023-01-03 11:00] VITALS: BP 143/78; PULSE 71; RESP 16; TEMP 36.5; O2SAT 93
--- NOTE | 2023-01-03 11:36 | PC.NURSE ---
Anti-nausea patch applied to patient's shirt at this time as she continues to have intermittent nausea though is not very accepting of foods po- staff encouraging alternatives and ordered white rice with soy sauce for lunch per her request.
[2023-01-03] MEDS: LEVOTHYROXINE 88 MCG TABLET PO (11:58)
--- NOTE | 2023-01-03 13:25 | PC.NURSE ---
Patient discharged at 1310 after reviewing and signing discharge paperwork. Patient transportation provided by sister. IV removed from L wrist prior to discharge with catheter noted to be intact. All belongings removed from room. Patient discharged to home setting.
--- NOTE | 2023-01-03 14:00 | P.ORPN_ITS ---
Subjective Subjective Date Seen: 01/03/23 Principal diagnosis: Status postop day 1 right total knee arthroplasty Interval history: Patient reports doing well. No acute events over night. Some nausea vomiting, which she feels is due to empty stomach and narcotic consumption. Pain managed with scheduled and PRN medications, ice. She has a very poor appetite which is normal for her. DVT prophylaxis: 81 mg aspirin by mouth twice daily, bilateral knee high Tam stockings, SCDs, walking. Denies fevers, chills, aches, N/V, CP, SOB/[place], or lightheadedness. No flatus. States she has a history of constipation postoperatively. Ortho Exam Narrative Exam Narrative: -Patient appears comfortable; no apparent acute distress -Alert and oriented times 3 -Operative knee mildly swollen; soft tissues supple; no ecchymosis; no erythematous streaking Warmth appropriate -Surgical dressing clean, dry, intact; no drainage -Bilateral calfs soft; no significant swelling, edema, tenderness, erythema, discoloration, warmth, or palpable cords -2+ DP/PT pulses, intact dermatomes and myotomes distally (5/5 strength) Her abdomen is soft and nontender all 4 quadrants Const Vital Signs, click to edit/add: Vital Signs - 24 hr 01/02/23 14:40 01/02/23 14:45 01/02/23 14:50 Temperature 97.4 F L Pulse Rate 57 L 59 L 57 L Pulse Rate [Pulse Oximeter] Respiratory Rate 16 14 14 Blood Pressure 105/58 L 111/67 118/72 Blood Pressure [Right Arm] Pulse Oximetry 96 96 95 Oxygen Delivery Method Room Air 01/02/23 14:55 01/02/23 15:00 01/02/23 15:05 Temperature Pulse Rate 56 L 58 L 57 L Pulse Rate [Pulse Oximeter] Respiratory Rate 12 14 16 Blood Pressure 117/71 124/88 137/79 Blood Pressure [Right Arm] Pulse Oximetry 94 96 95 Oxygen Delivery Method 01/02/23 15:10 01/02/23 15:15 01/02/23 15:30 Temperature 97.0 F L 96.6 F L 96.9 F L Pulse Rate 60 Pulse Rate [Pulse Oximeter] 63 62 Respiratory Rate 14 14 16 Blood Pressure 133/74 Blood Pressure [Right Arm] 146/77 H 141/83 H Pulse Oximetry 94 98 95 Oxygen Delivery Method Room Air Room Air 01/02/23 15:45 01/02/23 16:00 01/02/23 16:15 Temperature 96.4 F L 96.3 F L 96.4 F L Pulse Rate Pulse Rate [Pulse Oximeter] 60 65 61 Respiratory Rate 12 12 Blood Pressure Blood Pressure [Right Arm] 127/90 H 103/63 107/71 Pulse Oximetry 94 93 93 Oxygen Delivery Method Room Air Room Air Room Air 01/02/23 16:45 01/02/23 17:15 01/02/23 18:15 Temperature 96.2 F L 96.6 F L 96.8 F L Pulse Rate Pulse Rate [Pulse Oximeter] 66 65 70 Respiratory Rate 16 16 14 Blood Pressure Blood Pressure [Right Arm] 106/66 117/91 H 122/76 Pulse Oximetry 91 98 98 Oxygen Delivery Method Room Air Room Air Room Air 01/02/23 23:00 01/02/23 23:00 01/03/23 03:00 Temperature 97.3 F L 97.1 F L Pulse Rate Pulse Rate [Pulse Oximeter] 66 67 Respiratory Rate 16 18 Blood Pressure Blood Pressure [Right Arm] 118/81 135/77 Pulse Oximetry 97 97 98 Oxygen Delivery Method Room Air Room Air 01/03/23 07:00 01/03/23 07:00 01/03/23 11:00 Temperature 97.6 F 97.7 F Pulse Rate Pulse Rate [Pulse Oximeter] 67 71 Respiratory Rate 16 16 Blood Pressure Blood Pressure [Right Arm] 142/88 H 143/78 H Pulse Oximetry 98 98 93 Oxygen Delivery Method Room Air Room Air Assessment and Plan Assessment and plan (1) History of total right knee replacement (TKR): Problem details: - 01/02/23[place] Status: Acute Plan - Complete 23 hour perioperative antibiotics. - PT/OT consult for education and assistance. - Social work consult for discharge planning - Prescribed analgesics as needed - DVT prophylaxis: 81 mg aspirin by mouth twice daily, bilateral knee high Tam Hose stockings and SCDs - Anticipation is for discharge to home with family 01/03/2023 if the patient remains medically stable, pain is controlled, and they are safe with mobilization. - she is reminded and encouraged to take stool softener to help with co nstipation. Encouraged oral intake.
== END 2023-01-03 13:10 | disposition home or self-care (01) ==
LOC: OR 11:46 → MEDSURG 11:48
PROVIDERS: PCP Family Medicine; Visit Provider Orthopaedic Surgery Sports Medicine
PROC: (CPT 27447; principal; 2023-01-02 12:45)
DX: M17.11 Unilateral primary osteoarthritis, right knee (principal); G89.18 Other acute postprocedural pain; I10 Essential (primary) hypertension; E03.9 Hypothyroidism, unspecified
CPT/HCPCS: 27447; 01402; 36415; 64447; 64454; 73560; 76942; 82565; 84132; 84295; 84520; 85025; 97110; 97116; 97162; 97165; 97530; 97535; A9270; C1776; J0690; J0780; J1100; J1170; J2250; J2405; J2704; J2795; J3010; J7120

== ENCOUNTER 2023-03-05 10:30 | Outpatient (CLI) | payer MEDICARE, SELFPAY | END 2023-03-05 10:31 | disposition home or self-care (01) | PROVIDERS: PCP Family Medicine; Referring Provider Family Medicine; Visit Provider Family Medicine | DX: E03.9 Hypothyroidism, unspecified (principal) | CPT/HCPCS: 84443 ==

== ENCOUNTER 2023-04-10 13:00 | Outpatient (RCR) | payer OTHER, MEDICARE, SELFPAY ==
--- NOTE | 2022-12-21 14:09 | PT.OPE ---
PT [facility] Out[facility] Eval [facility] Outpatient Eval Start: 12/21/22 12:37 Freq: Status: Active Protocol: Document 12/21/22 12:38 ENM (Rec: 12/21/22 13:55 ENM [id number]) E-signed By Elizabeth Bailey, DPT Physical Therapy Outpatient Evaluation Insurance Information Insurance Name [facility] Medical Diagnosis unilateral primary osteoarthritis, right knee presence of right artificial knee joint s/p R TKA 01/02/23 Treating Diagnosis right knee pain, difficulty walking, decreased knee ROM, decreased knee strength Referring MD Shirley Subjective Subjective Patient presents for pre- operative appointment prior to R TKA to be performed on 01/[address] Jones. For additional information on home set up and assistive devices see pre-op flowsheet. Started to use a cane about 5 months ago because of the knee pain. Had left foot surgery back in March and after that her knee was killing her which prompted imaging of her knee. Since injections no longer work for pain relief she is going to have her knee replaced. 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 She prefers to use the cane in her right hand palpation/joint mobility: patient tender throughout all of the right knee Posture: increased thoracic kyphosis, valgus knee posture Assessment Assessment/Impression Patient is a 67 year old female presenting for pre op visit prior to R TKA on . Patient has difficulty with walking longer distance and performing her work duties now due to knee pain. Had to start using a cane for support 5 months ago because of this. They will have support from their sister at home after the surgery. Upon assessment patient displays decreased knee ROM, decreased proximal hip strength and antalgic gait pattern. Right knee ROM 0-6- 105 prior to surgery. Patient will be seen post operatively to reassess impairments that will be addressed with skilled care. Cheryl would greatly benefit from skilled PT to progress strength, ROM and ambulation post operatively in order to perform all household and work duties without significant difficulty or discomfort. Primary Functional Limitations walking, doing her work activities Plan of Care Rehabilitation Potential Good Physical Therapy Goals After pre-op visit: ? Patient will be independent with HEP ? Patient will verbalize knowledge of stair navigation and proper sequencing ? Patient will have knowledge on home adaptations and use of assistive devices post operatively ? Patient will have knowledge of edema management Coordination/Communication With Referral Source Treatment Plan/Direct Interventions Electrical Stimulation,Gait Training,Ice/Cold/ Vasopneumatic,Joint Mobilization,Manual Therapy, Neuromuscular Re-ed,Orthotics/ Braces,Therapeutic Activities, Therapeutic Exercises Frequency/Duration 1x visit prior to surgery on 01/02/23. Patient scheduled to start outpatient PT s/p R TKA on 01/07/23. Has HEP to start with pre-operatively. Patient Will Be Discharged From Therapy Completion of LTG(s), Independent w/HEP Evaluation Billing Untimed Code Treatment Minutes 25 Complexity Low Certification Information Initial Certification Date 12/21/22 Ending Certification Date 03/15/23 Provider Signature Shows Agreement With POC & Medical Necessity Physician Signature & Date Requested Please Sign/Date Here Physician Comment/Change : Physician NPI Number #
== END 2023-06-12 09:51 | disposition home or self-care (01) ==
PROVIDERS: PCP Family Medicine; Visit Provider Orthopaedic Surgery Sports Medicine
DX: M17.11 Unilateral primary osteoarthritis, right knee (principal); M25.561 Pain in right knee; R26.2 Difficulty in walking, not elsewhere classified; Z74.09 Other reduced mobility; R53.1 Weakness; Z51.89 Encounter for other specified aftercare
CPT/HCPCS: 97110; 97112; 97116; 97140; 97161; 97164; 97530

== ENCOUNTER 2023-12-02 08:34 | Outpatient (CLI) | payer MEDICARE, SELFPAY | END 2023-12-02 08:35 | disposition home or self-care (01) | LOC: NFLDREF 12-04 13:07 | PROVIDERS: PCP Family Medicine; Referring Provider Family Medicine; Visit Provider Family Medicine | DX: E78.5 Hyperlipidemia, unspecified (principal); E03.9 Hypothyroidism, unspecified; I10 Essential (primary) hypertension | CPT/HCPCS: 80053; 80061; 84443 ==

== ENCOUNTER 2024-12-17 07:49 | Outpatient (CLI) | payer MEDICARE, SELFPAY | END 2024-12-17 07:50 | disposition home or self-care (01) | LOC: NFLDREF 12-22 10:24 | PROVIDERS: PCP Family Medicine; Referring Provider Family Medicine; Visit Provider Family Medicine | DX: E78.5 Hyperlipidemia, unspecified (principal); E03.9 Hypothyroidism, unspecified | CPT/HCPCS: 80053; 80061; 84443 ==

== ENCOUNTER 2025-01-29 08:34 | Outpatient (CLI) | payer MEDICARE, SELFPAY ==
--- NOTE | 2025-01-29 08:45 | CRLHL7_ITS ---
For Patients: As a result of the Century Cures Act, medical imaging exams and procedure reports are released immediately into your electronic medical record. You may view this report before your referring provider. If you have questions, please contact your health care provider. INDICATION: BILATERAL SCREENING MAMMOGRAM, ASYMPTOMATIC 69 Y/O FEMALE COMPARISON: 12/20/2022, 02/16/2019, 11/29/2017 TECHNIQUE: Digital mammogram in CC and MLO projections including computer-aided detection (CAD) and tomosynthesis. BREAST COMPOSITION: There are scattered areas of fibroglandular density. FINDINGS: No suspicious findings. ASSESSMENT: BI-RADS 2 Benign RECOMMENDATION: Annual screening mammogram. A lay language report of this examination will be provided to the patient. Dictated by: Danny Valdes MD @ 02/01/2025 11:09:22 (Electronically Signed)
== END 2025-01-29 08:35 | disposition home or self-care (01) ==
LOC: MAMMO 08:34
PROVIDERS: PCP Family Medicine; Visit Provider Family Medicine
DX: Z12.31 Encounter for screening mammogram for malignant neoplasm of breast (principal)
CPT/HCPCS: 77063; 77067

== ENCOUNTER 2025-02-22 11:57 | Emergency (ER) | payer MEDICARE, SELFPAY ==
[2025-02-22] VITALS (9 sets, daily range): BP systolic 107–146; BP diastolic 65–99; PULSE 57–102; RESP 12–18; TEMP 37.1; O2SAT 97–100
--- NOTE | 2025-02-22 12:10 | ED.GENADULT ---
HPI - General Adult General Time Seen by Provider: 12:10 <Dior Solis MD - Last Filed: 02/22/25 20:20> Date Seen: 02/22/25 <Dior Solis MD - Last Filed: 02/22/25 20:20> Chief complaint: Arrhythmia/Palpitations <Dior Solis MD - Last Filed: 02/22/25 20:20> Stated complaint: AFIB <Dior Solis MD - Last Filed: 02/22/25 20:20> Time Seen by Provider: 02/22/25 12:09 <Dior Solis MD - Last Filed: 02/22/25 20:20> Source: patient and RN notes reviewed <Dior Solis MD - Last Filed: 02/22/25 20:20> Mode of arrival: ambulatory <Dior Solis MD - Last Filed: 02/22/25 20:20> Limitations: no limitations <Dior Solis MD - Last Filed: 02/22/25 20:20> History of Present Illness HPI narrative: This 69yo female is coming in from referral by [facility] for Afib. She has a monitor at home and has been in possible afib on the home EKG the last couple of days. She typically can tell when she is going into this but she has only noted some lightheadedness on standing. Today she has felt a little short of breath but admits that she has been rushing around. She was diagnosed with atrial fibrillation about a year ago, she sounds like she had possible transesophageal ECHO and then cardioversion from her report, done at [facility]. She is on sotatol and is anticoagulated with Eliquis, no missed doses. She is hypothyroid, did have normal TSH December 2024. <Dior Solis MD - Last Filed: 02/22/25 20:20> Related Data Home medications: Home Medications ?Medication ?Instructions ?Recorded ?Confirmed cholecalciferol (vitamin D3) 10 10 mcg PO QDAY 07/31/22 02/22/25 mcg (400 unit) capsule Previous Rx's ?Medication ?Instructions ?Recorded amlodipine 10 mg tablet 10 mg PO QDAY #90 tabs 12/24/24 apixaban 5 mg tablet (Eliquis) 5 mg PO BID #180 tabs 12/24/24 levothyroxine 100 mcg tablet 100 mcg PO QDAY #90 tabs 12/24/24 simvastatin 20 mg tablet 20 mg PO QDAY #90 tabs 12/24/24 sotalol 80 mg tablet 80 mg PO BID #180 tabs 12/24/24 <Dior Solis MD - Last Filed: 02/22/25 20:20> Allergies/adverse reactions: Allergies Allergy/AdvReac Type Severity Reaction Status Date / Time ragweed pollen Allergy Intermediate itchy eyes Verified 02/22/25 12:06 <Dior Solis MD - Last Filed: 02/22/25 20:20> Review of Systems Status of ROS: Reports: 6 or more systems reviewed and unremarkable except as noted in History and below <Dior Solis MD - Last Filed: 02/22/25 20:20> [facility] Medical History: Medical History Amputation of second toe, left, traumatic ?S98.132A - Complete traumatic amputation of one left lesser toe, initial encounter (ICD-10) HTN (hypertension) ?I10 - Essential (primary) hypertension (ICD-10) Osteoarthritis of right shoulder ?M19.011 - Primary osteoarthritis, right shoulder (ICD-10) Osteoarthritis of left shoulder ?M19.012 - Primary osteoarthritis, left shoulder (ICD-10) Hypothyroidism ?E03.9 - Hypothyroidism, unspecified (ICD-10) Hyperlipidemia ?E78.5 - Hyperlipidemia, unspecified (ICD-10) Osteopenia ?M85.80 - Other specified disorders of bone density and structure, unspecified site (ICD-10) Osteoarthritis of right knee ?M17.11 - Unilateral primary osteoarthritis, right knee (ICD-10) Tendonitis of left rotator cuff ?M75.82 - Other shoulder lesions, left shoulder (ICD-10) Adhesive capsulitis of left shoulder ?M75.02 - Adhesive capsulitis of left shoulder (ICD-10) Seasonal allergies ?J30.2 - Other seasonal allergic rhinitis (ICD-10) Anxiety ?F41.9 - Anxiety disorder, unspecified (ICD-10) Swelling of toe of left foot ?M79.89 - Other specified soft tissue disorders (ICD-10) <Dior Solis MD - Last Filed: 02/22/25 20:20> Surgical History: Surgical History History of hysterectomy ?Z90.710 - Acquired absence of both cervix and uterus (ICD-10) History of total right knee replacement (TKR) (01/02/23) ?Z96.651 - Presence of right artificial knee joint (ICD-10) Hammertoe of left foot (03/19/22) ?M20.42 - Other hammer toe(s) (acquired), left foot (ICD-10) H/O total hysterectomy with bilateral salpingo-oophorectomy (BSO) ?Z90.710 - Acquired absence of both cervix and uterus (ICD-10) ?Z90.722 - Acquired absence of ovaries, bilateral (ICD-10) ?Z90.79 - Acquired absence of other genital organ(s) (ICD-10) History of cholecystectomy ?Z90.49 - Acquired absence of other specified parts of digestive tract (ICD-10) History of appendectomy ?Z90.49 - Acquired absence of other specified parts of digestive tract (ICD-10) S/p bilateral carpal tunnel release ?Z98.890 - Other specified postprocedural states (ICD-10) <Dior Solis MD - Last Filed: 02/22/25 20:20> Family History: Family History Sister Breast cancer Mother Diabetes Maternal Grandmother Ovarian cancer <Dior Solis MD - Last Filed: 02/22/25 20:20> Social History: Social History What is your current living situation?: I presently have a place to live Problems where you live: no known problems In the past 12 months, utilities in danger of being shut off: no In past 12 months, lack of transportation kept you from medical appts, meetings, work, or getting things needed for daily living: no In the past 12 mos, have been you worried that your food would run out before you had money to buy more?: never true In the past 12 mos, the food you bought just didn't last and you didn't have money to buy more?: never true Smoking Status: Never smoker How often do you have a drink containing alcohol: monthly or less How many standard drinks containing alcohol do you have on a typical day: 3 or 4 AUDIT-C Alcohol total score: 2 Non-prescribed substance use: denies use Caffeine: Yes How often does anyone, including family, friends and others, physically hurt you: never How often does anyone, including family, friends and others, insult or talk down to you: never How often does anyone, including family, friends and others, threaten you with harm: never How often does anyone, including family, friends and others, scream or curse at you: never <Dior Solis MD - Last Filed: 02/22/25 20:20> Exam Const: Vital Signs, click to edit/add: Vital Signs - 24 hr 02/22/25 12:00 02/22/25 14:17 02/22/25 14:26 Temperature 98.7 F Pulse Rate 90 Pulse Rate [Right Pulse Oximeter] 87 Respiratory Rate 18 13 Blood Pressure 142/99 H Blood Pressure [Ri ght Upper Arm] 146/95 H Pulse Oximetry 97 100 100 Oxygen Delivery Me thod Room Air Nasal Cannula Nasal Cannula Oxygen Flow Rate 2 2 02/22/25 14:31 02/22/25 14:36 02/22/25 14:41 Temperature Pulse Rate 102 H 100 59 L Pulse Rate [Right Pulse Oximeter] Respiratory Rate 18 18 13 Blood Pressure 107/77 118/78 136/86 Blood Pressure [Ri ght Upper Arm] Pulse Oximetry 98 100 100 Oxygen Delivery Me thod Nasal Cannula Nasal Cannula Nasal Cannula Oxygen Flow Rate 2 2 2 02/22/25 14:47 02/22/25 14:51 02/22/25 14:57 Temperature Pulse Rate 57 L 57 L 58 L Pulse Rate [Right Pulse Oximeter] Respiratory Rate 12 15 16 Blood Pressure 132/70 117/65 120/77 Blood Pressure [Ri ght Upper Arm] Pulse Oximetry 99 100 100 Oxygen Delivery Me thod Nasal Cannula Nasal Cannula Nasal Cannula Oxygen Flow Rate 2 2 2 Patient is alert, interactive, she is sitting up on the edge of the bed. She can speak in complete sentences. Face atraumatic, neck supple. Lungs are clear, no wheezing or crackles, no tachypnea, no accessory muscle use. CV is irregular, sounds sometimes fast, no murmur, normal S1/S2. No lower extremity edema. <Dior Solis MD - Last Filed: 02/22/25 20:20> Vital Signs, click to edit/add: Vital Signs - 24 hr 02/22/25 12:00 02/22/25 14:17 02/22/25 14:26 Temperature 98.7 F Pulse Rate 90 Pulse Rate [Right Pulse Oximeter] 87 Respiratory Rate 18 13 Blood Pressure 142/99 H Blood Pressure [Ri ght Upper Arm] 146/95 H Pulse Oximetry 97 100 100 Oxygen Delivery Me thod Room Air Nasal Cannula Nasal Cannula Oxygen Flow Rate 2 2 02/22/25 14:31 02/22/25 14:36 02/22/25 14:41 Temperature Pulse Rate 102 H 100 59 L Pulse Rate [Right Pulse Oximeter] Respiratory Rate 18 18 13 Blood Pressure 107/77 118/78 136/86 Blood Pressure [Ri ght Upper Arm] Pulse Oximetry 98 100 100 Oxygen Delivery Me thod Nasal Cannula Nasal Cannula Nasal Cannula Oxygen Flow Rate 2 2 2 02/22/25 14:47 02/22/25 14:51 02/22/25 14:57 Temperature Pulse Rate 57 L 57 L 58 L Pulse Rate [Right Pulse Oximeter] Respiratory Rate 12 15 16 Blood Pressure 132/70 117/65 120/77 Blood Pressure [Ri ght Upper Arm] Pulse Oximetry 99 100 100 Oxygen Delivery Me thod Nasal Cannula Nasal Cannula Nasal Cannula Oxygen Flow Rate 2 2 2 <Claudia Nolasco MD - Last Filed: 02/22/25 15:11> Documenting provider has reviewed patient's vital signs: yes <Dior Solis MD - Last Filed: 02/22/25 20:20> Course Course ED Course: I have patient's EKG from clinic. We will put her on cardiac monitoring here to see what her rate is doing. Will get a portable chest x-ray to rule out any congestive heart failure but clinically she does not seem to be in decompensated heart failure. Will get appropriate labs for her atrial fibrillation. She is anticoagulated but question if she knows really how long she has been in this, do wonder if she might be moving more towards chronic atrial fibrillation. Will likely talk to Cardiology regarding the decision for cardioversion or not. <Dior Solis MD - Last Filed: 02/22/25 20:20> Reevaluation(s) Time of Reevaluation #1: 13:36 <Dior Solis MD - Last Filed: 02/22/25 20:20> Reevaluation #1: Have reviewed my conversation with patient. She cap stating she was confused, reeks planed her atrial fibrillation the cardioversion process. We did review how some people can start to going to chronic atrial fibrillation and the heart will not stay out of the rhythm. She notes that she is feeling lightheaded, she feels this way when she gets up, feels like she needs to sit down and rest frequently. Given the symptoms, I do think she should consider attempting the cardioversion, she will no than that it was trialed to give her chance to go back in a sinus rhythm. We went over risks of the procedure including but not limited to decompensation of rhythm, complications of anesthesia with breathing requiring intervention with cardiopulmonary resuscitation and/or intubation at worst complication. I reviewed with her that typically the worst complication is the cardioversion does not work and patient remains and atrial fibrillation. We talked about cardiology follow-up, she cited multiple issues with this. I reviewed with her that she will have to work to figure this out, she is going to need Cardiology follow-up. <Dior Solis MD - Last Filed: 02/22/25 20:20> Time of Reevaluation #2: 14:24 <Dior Solis MD - Last Filed: 02/22/25 20:20> Reevaluation #2: Nursing staff had ambulated patient. Her pulse went up into the 90s, the the highest it went was 101; thus, no evidence of any uncontrolled atrial fibrillation rate. She did complain of lightheadedness. Pulse oximetry remained normal, no hypoxia. She has been consented on a trial of cardioversion, we will proceed. Dr. Nolasco will be doing anesthesia. <Dior Solis MD - Last Filed: 02/22/25 20:20> Time of Reevaluation #3: 14:38 <Dior Solis MD - Last Filed: 02/22/25 20:20> Reevaluation #3: Completed cardioversion with 200 joules with [address] Gutierrez note for attendance for air anesthesia provider. Patient had appropriate cardiopulmonary monitoring in place, supplemental oxygen. She did receive propofol fall for anesthesia, again see note by Dr. Nolasco. Two hundred joules x1 restored sinus rhythm with first-degree AV block. She was initially sinus tachycardia under 110. Will do appropriate post sedation monitoring and see how patient does. Hopeful discharge to home. <Diro Solis MD - Last Filed: 02/22/25 20:20> Additional Reevaluation(s): I was asked to help with sedation for cardioversion. Risks and benefits discussed, consent signed. Patient was maintain on oximetry, cardiac and end-tidal CO2 monitoring. Respiratory therapy was present as well. I initially gave 50 mg of propofol IV based on a weight of 84 kg. She had 3 additional bumps of 10 mg for a total of 80 mg with adequate sedation. Cardioverted without complication, awakened without difficulty. 2:43 p.m.: Nursing staff repeated another EKG as patient's heart rate dropped into the 50s. This EKG showing sinus bradycardia at 53 beats per minute, no first-degree AV block. This is still sinus rhythm. Will continue to monitor the patient post sedation, see how she is feeling. <Dior Solis MD - Last Filed: 02/22/25 20:20> I was asked to help with sedation for cardioversion. Risks and benefits discussed, consent signed. Patient was maintain on oximetry, cardiac and end-tidal CO2 monitoring. Respiratory therapy was present as well. I initially gave 50 mg of propofol IV based on a weight of 84 kg. She had 3 additional bumps of 10 mg for a total of 80 mg with adequate sedation. Cardioverted without complication, awakened without difficulty. <Claudia Nolasco MD - Last Filed: 02/22/25 15:11> Consultations Consultation #1: The councillor [employer] from [place] was consulted, spoke with Dr. Sheldon. She did have an EKG in November showing atrial fibrillation. She is not known to be in chronic atrial fibrillation now. He agrees she may have been in this longer than she knows. He does think it is reasonable to attempt to do a cardioversion and see if we can put her back into sinus rhythm or alternatively she seems like she is tolerating this, could let her discharge as she is anticoagulated, seems to be rate controlled and follow up outpatient with Cardiology. I will discuss this with the patient. <Dior Solis MD - Last Filed: 02/22/25 20:20> Time: 13:18 <Dior Solis MD - Last Filed: 02/22/25 20:20> Vital Signs Vital signs: Initial Vital Signs Temperature 98.7 F 02/22/25 12:00 Temperature Source Temporal Artery Scan 02/22/25 12:00 Pulse Rate 87 02/22/25 12:00 Pulse Rhythm Regular 02/22/25 12:00 Pulse Strength 3+ Normal 02/22/25 12:00 Respiratory Rate 18 02/22/25 12:00 Blood Pressure 146/95 H 02/22/25 12:00 Blood Pressure Mean 112 H 02/22/25 12:00 Blood Pressure Position Sitting 02/22/25 12:00 Pulse Oximetry 97 02/22/25 12:00 Oxygen Delivery Method Room Air 02/22/25 12:00 Vital Signs Temperature 98.7 F 02/22/25 12:00 Pulse Rate 87 02/22/25 12:00 Respiratory Rate 18 02/22/25 12:00 Blood Pressure 146/95 H 02/22/25 12:00 Pulse Oximetry 97 02/22/25 12:00 Oxygen Delivery Method Room Air 02/22/25 12:00 Temperature 98.7 F 02/22/25 12:00 Pulse Rate 58 L 02/22/25 14:57 Respiratory Rate 16 02/22/25 14:57 Blood Pressure 120/77 02/22/25 14:57 Pulse Oximetry 100 02/22/25 14:57 Oxygen Delivery Method Nasal Cannula 02/22/25 14:57 Oxygen Flow Rate 2 02/22/25 14:57 <Dior Solis MD - Last Filed: 02/22/25 20:20> Initial Vital Signs Temperature 98.7 F 02/22/25 12:00 Temperature Source Temporal Artery Scan 02/22/25 12:00 Pulse Rate 87 02/22/25 12:00 Pulse Rhythm Regular 02/22/25 12:00 Pulse Strength 3+ Normal 02/22/25 12:00 Respiratory Rate 18 02/22/25 12:00 Blood Pressure 146/95 H 02/22/25 12:00 Blood Pressure Mean 112 H 02/22/25 12:00 Blood Pressure Position Sitting 02/22/25 12:00 Pulse Oximetry 97 02/22/25 12:00 Oxygen Delivery Method Room Air 02/22/25 12:00 Vital Signs Temperature 98.7 F 02/22/25 12:00 Pulse Rate 87 02/22/25 12:00 Respiratory Rate 18 02/22/25 12:00 Blood Pressure 146/95 H 02/22/25 12:00 Pulse Oximetry 97 02/22/25 12:00 Oxygen Delivery Method Room Air 02/22/25 12:00 Temperature 98.7 F 02/22/25 12:00 Pulse Rate 58 L 02/22/25 14:57 Respiratory Rate 16 02/22/25 14:57 Blood Pressure 120/77 02/22/25 14:57 Pulse Oximetry 100 02/22/25 14:57 Oxygen Delivery Method Nasal Cannula 02/22/25 14:57 Oxygen Flow Rate 2 02/22/25 14:57 <Claudia Nolasco MD - Last Filed: 02/22/25 15:11> Medical Decision Making Lab Data Lab results reviewed: Yes I reviewed the patient's lab results <Dior Solis MD - Last Filed: 02/22/25 20:20> Labs: Lab Results 02/22/25 Range/Units 12:33 WBC 10.33 (4.50-11.00) K/uL RBC 4.41 (4.00-5.20) m/uL Hgb 10.8 L (12.0-16.0) gm/dL Hct 34.6 (33.0-51.0) % MCV 79 L (80-100) fL MCH 25 L (26-34) pg MCHC 31 L (32-36) gm/dL RDW Coeff of Sneha 14.3 (11.5-15.5) % Plt Count 368 (140-440) K/uL Neut % (Auto) 73.4 H (42.0-72.0) % Lymph % (Auto) 12.5 L (20-44) % [place] % (Auto) 9.5 (0.0-11.0) % Eos % (Auto) 3.9 (0.0-7.0) % Baso % (Auto) 0.6 (0.0-3.0) % Neut # (Auto) 7.60 H (1.7-7.0) K/uL Lymph # (Auto) 1.30 (0.90-2.90) K/uL [place] # (Auto) 1.00 H (0.00-0.90) K/UL Eos # (Auto) 0.40 (0.00-0.50) K/uL Baso # (Auto) 0.06 (0.00-0.30) K/uL Abs Immat Gran (auto) 0.01 (0.00-0.30) K/uL Imm/Tot Granulo (auto) 0.1 % Sodium 138 (135-149) mmol/L Potassium 4.0 (3.6-5.1) mmol/L Chloride 104 (96-114) mmol/L Carbon Dioxide 27 (20-32) mmol/L Anion Gap 7 (7-15) mEq/L BUN 21 (7-30) mg/dL Creatinine 1.0 (0.5-1.5) mg/dL Estimated GFR 60 ml/min Glucose 117 H (60-115) mg/dL Calcium 9.0 (8.4-10.6) mg/dL Magnesium 2.0 (1.5-2.6) mg/dL Troponin I < 0.01 (0.01-0.04) ng/mL <Dior Solis MD - Last Filed: 02/22/25 20:20> Lab Results 02/22/25 Range/Units 12:33 WBC 10.33 (4.50-11.00) K/uL RBC 4.41 (4.00-5.20) m/uL Hgb 10.8 L (12.0-16.0) gm/dL Hct 34.6 (33.0-51.0) % MCV 79 L (80-100) fL MCH 25 L (26-34) pg MCHC 31 L (32-36) gm/dL RDW Coeff of S[place] 14.3 (11.5-15.5) % Plt Count 368 (140-440) K/uL Neut % (Auto) 73.4 H (42.0-72.0) % Lymph % (Auto) 12.5 L (20-44) % [place] % (Auto) 9.5 (0.0-11.0) % Eos % (Auto) 3.9 (0.0-7.0) % Baso % (Auto) 0.6 (0.0-3.0) % Neut # (Auto) 7.60 H (1.7-7.0) K/uL Lymph # (Auto) 1.30 (0.90-2.90) K/uL [place] # (Auto) 1.00 H (0.00-0.90) K/UL Eos # (Auto) 0.40 (0.00-0.50) K/uL Baso # (Auto) 0.06 (0.00-0.30) K/uL Abs Immat Gran (auto) 0.01 (0.00-0.30) K/uL Imm/Tot Granulo (auto) 0.1 % Sodium 138 (135-149) mmol/L Potassium 4.0 (3.6-5.1) mmol/L Chloride 104 (96-114) mmol/L Carbon Dioxide 27 (20-32) mmol/L Anion Gap 7 (7-15) mEq/L BUN 21 (7-30) mg/dL Creatinine 1.0 (0.5-1.5) mg/dL Estimated GFR 60 ml/min Glucose 117 H (60-115) mg/dL Calcium 9.0 (8.4-10.6) mg/dL Magnesium 2.0 (1.5-2.6) mg/dL Troponin I < 0.01 (0.01-0.04) ng/mL <Claudia Nolasco MD - Last Filed: 02/22/25 15:11> Imaging Data Chest x-ray: Attestation: I have reviewed the pertinent imaging results. <Dior Solis MD - Last Filed: 02/22/25 20:20> My impression: I did visualize her chest x-ray portable image, do not appreciate any CHF. <Dior Solis MD - Last Filed: 02/22/25 20:20> Radiologist's impression: Patient: ADI GAMBINO Facility:?[facility] Patient ID:?[id number] Site Patient ID:?[id number]. Site :?[id number] Study:?XRay-Chest portable 1V-02/22/2025 12:43:57 PM Ordering Physician:Archie Rader Final Report: INDICATION: Atrial fibrillation TECHNIQUE: Semi upright portable AP image of the chest COMPARISON: None FINDINGS: Kyphotic positioning. Lungs low in volume, clear. Calcified granuloma at the right base and calcified right hilar lymph nodes. Heart size at the upper limits of normal. Pulmonary veins normal in caliber. No significant osseous abnormality. IMPRESSION: 1. Heart size at the upper limits of normal given AP technique and shallow inspiration. 2. Clear lungs. Dictated by Skip Hernandez MD @ 02/22/2025 12:47:28 PM (Electronic Signature) <Dior Solis MD - Last Filed: 02/22/25 20:20> ECG Data Attestation: I personally reviewed and interpreted this ECG as follows: (EKG from clinic copied from clinic and shows afib, rate 76 bpm.) <Dior Solis MD - Last Filed: 02/22/25 20:20> Prior ECG tracings: available for review <Dior Solis MD - Last Filed: 02/22/25 20:20> Discharge Plan Discharge Clinical Impression: Encounter for cardioversion procedure Atrial fibrillation Qualifiers: Atrial fibrillation type: paroxysmal Qualified Code(s): I48.0 - Paroxysmal atrial fibrillation <Dior Solis MD - Last Filed: 02/22/25 20:20> Patient Disposition: Home, Self-Care <Dior Solis MD - Last Filed: 02/22/25 20:20> Condition: Stable <Dior oSlis MD - Last Filed: 02/22/25 20:20> Instructions: A-fib (Atrial Fibrillation) (ED) <Dior Solis MD - Last Filed: 02/22/25 20:20> Additional Instructions: Continue taking your usual medications including the sotalol and Eliquis. Keep your cardiology appointment for May but schedule follow-up with your primary care provider within the next week or as soon as possible. If you note further issues or symptoms, check your EKG to establish your rhythm. Seek re-evaluation for further issues or concerns. <Dior Solis MD - Last Filed: 02/22/25 20:20> Activity Level: Activity as Tolerated <Dior Solis MD - Last Filed: 02/22/25 20:20> Activity as Tolerated <Claudia Nolasco MD - Last Filed: 02/22/25 15:11> Prescriptions: No Action cholecalciferol (vitamin D3) 10 mcg (400 unit) capsule 10 mcg PO QDAY amlodipine 10 mg tablet 10 mg PO QDAY Qty: 90 3RF levothyroxine 100 mcg tablet 100 mcg PO QDAY Qty: 90 3RF simvastatin 20 mg tablet 20 mg PO QDAY Qty: 90 3RF sotalol 80 mg tablet 80 mg PO BID Qty: 180 1RF Eliquis 5 mg tablet 5 mg PO BID Qty: 180 1RF <Dior Solis MD - Last Filed: 02/22/25 20:20> Follow Up/Referrals: Cosmo Miller MD [Primary Care Provider, Family Practice] <Dior Solis MD - Last Filed: 02/22/25 20:20> Stand Alone Forms: MyHealth Info Instructions <Dior Solis MD - Last Filed: 02/22/25 20:20>
--- NOTE | 2025-02-22 12:18 | CRLHL7_ITS ---
For Patients: As a result of the Century Cures Act, medical imaging exams and procedure reports are released immediately into your electronic medical record. You may view this report before your referring provider. If you have questions, please contact your health care provider. INDICATION: Atrial fibrillation TECHNIQUE: Semi upright portable AP image of the chest COMPARISON: None FINDINGS: Kyphotic positioning. Lungs low in volume, clear. Calcified granuloma at the right base and calcified right hilar lymph nodes. Heart size at the upper limits of normal. Pulmonary veins normal in caliber. No significant osseous abnormality. IMPRESSION: 1. Heart size at the upper limits of normal given AP technique and shallow inspiration. 2. Clear lungs. Dictated by Skip Hernandez MD @ 02/22/2025 12:47:28 PM (Electronically Signed)
[2025-02-22 12:38] LABS: Hematocrit* 34.6 % (33.0-51.0); Hemoglobin* 10.8 gm/dL (12.0-16.0); Immature Granulocytes Abs Auto 0.01 K/uL (0.00-0.30); Immature Granulocytes Pct Auto 0.1 %; Mean Corpuscular HGB Conc 31 gm/dL (32-36); Mean Corpuscular Hemoglobin 25 pg (26-34); Mean Corpuscular Volume 79 fL (80-100); RDW Coefficient of Variation % 14.3 % (11.5-15.5); Red Blood Count* 4.41 m/uL (4.00-5.20); White Blood Count* 10.33 K/uL (4.50-11.00)
[2025-02-22 12:40] LABS: Lymphocytes Absolute Auto 1.30 K/uL (0.90-2.90); Slide Review Reflex No
[2025-02-22 12:53] LABS: Chloride* 104 mmol/L (96-114); Potassium* 4.0 mmol/L (3.6-5.1); Sodium* 138 mmol/L (135-149)
[2025-02-22 12:56] LABS: Anion Gap 7 mEq/L (7-15); Blood Urea Nitrogen* 21 mg/dL (7-30); Calcium* 9.0 mg/dL (8.4-10.6); Carbon Dioxide* 27 mmol/L (20-32); Creatinine* 1.0 mg/dL (0.5-1.5); Estimated Glomerular Filt Rate 60 ml/min; Glucose* 117 mg/dL (60-115)
--- NOTE | 2025-02-22 15:05 | RESP.RT ---
Cardioversion, patient placed on NC 2 Lpm, SaO2 98%, with EtCO2 in line 32 torr, RR 18-22/minute, VSS during procedure. Patient did not need assisted ventilation post shock.
== END 2025-02-22 15:33 | disposition home or self-care (01) ==
PROVIDERS: Emergency Provider Family Medicine; PCP Family Medicine
DX: I48.0 Paroxysmal atrial fibrillation (principal)
CPT/HCPCS: 36415; 71045; 80048; 83735; 84484; 85025; 92960; 93005; 99156; 99285; 99291